=== PATIENT | male | born 1960 | race Caucasian/White ===

== ENCOUNTER 2016-11-02 15:14 | Inpatient (IN) | payer OTHER ==
[~2016-11-02] VITALS: Ht 180.3 cm; Wt 103.9 kg
[2016-11-02] VITALS (17 sets, daily range): BP systolic 86–966; BP diastolic 56–112
--- NOTE | ~2016-11-02 | H ---
[facility] [address] [place] [address] HISTORY AND PHYSICAL Name: PHYLLIS COHN Room #: 208-P [facility] IN M.R.#: [id number] Admission: 11/02/16 Attend Phys: Armaan Naqvi MD, Discharge: 11/04/16 Date of : 64 Report #: [id number] THIS REPORT FOR: //name// CC: Armaan Naqvi [facility] physician/PCP REASON FOR ADMISSION: Myocardial infarction. HISTORY OF PRESENT ILLNESS: The patient is a 56-year-old gentleman, who is a patient of Dr. Lennie Cristobal with hypertension and dyslipidemia. Since Saturday, he has had off again on again midsternal chest discomfort, emanating from his epigastrium up into his upper chest. He thought that this was probably reflux and took some anti-reflux medicine without improvement. Today, around noon, the pain recurred and persisted and was associated with diaphoresis. With the unremitting nature of the discomfort, he presented to the emergency department, wherein EKG demonstrated sinus rhythm with inferior injury pattern. STEMI was activated. He denies heart failure symptoms including orthopnea, paroxysmal nocturnal dyspnea, or lower extremity edema. No history of palpitations, near syncope, or syncope. ALLERGIES: He has possible allergy to ASPIRIN. MEDICATIONS: Include simvastatin, lisinopril, Asmanex, and Flonase. PAST MEDICAL HISTORY: Medical records have been reviewed and include history of premalignant colon polyp removed several years ago, history of hypertension, dyslipidemia, and prior back surgery. 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 FAMILY HISTORY: Notable for father had heart attack in his 60s. REVIEW OF SYSTEMS: All systems negative except as that noted above. PHYSICAL EXAMINATION: GENERAL: This is a pleasant gentleman in no distress. VITAL SIGNS: Blood pressure is 150/90, heart rate of 100 and regular. He is afebrile, 5 feet 11 inches tall, 227 pounds. HEENT: There are neither xanthelasma, subcutaneous xanthomata, oral mucosal or digital cyanosis or kyphoscoliosis present. CHEST: Clear to auscultation and percussion. CARDIAC: Regular rate and rhythm with normal S1 and S2. Heart sounds are distant. ABDOMEN: Soft and nontender. EXTREMITIES: Without cyanosis, clubbing, or edema. Radial pulses are 2+. NEUROLOGIC: He is alert with a nonfocal exam. [facility] [address] [place] [address] HISTORY AND PHYSICAL Name: PHYLLIS COHN Room #: 208-P [facility] IN [facility]#: [id number] Admission: 11/02/16 Attend Phys: Armaan Naqvi MD, Discharge: 11/04/16 Date of : 64 Report #: [id number] LABORATORY DATA: Sodium 138, potassium 4.0, creatinine 1.1, glucose of 120. White count 12.7, hemoglobin 15, hematocrit 46, platelet count 275. Chest x-ray pending. EKG as detailed above. IMPRESSION: 1. Acute inferior myocardial infarction. 2. Hypertension. 3. Dyslipidemia. 4. Possible ASPIRIN allergy. 5. Elevated blood sugar; possible glucose intolerance versus diabetes. 6. Remote smoking history. RECOMMENDATIONS: 1. Therapy with systemic anticoagulants and antiplatelets. 2. Urgent coronary angiography. The angiographic procedure was discussed in detail including its associated risks. After a thorough discussion of the procedure, its risks and alternatives, and after answering his questions in detail, he is agreeable to proceeding. <ELECTRONICALLY SIGNED> By: Armaan Naqvi MD, FACC 11/04/16 1323 1556 1836 Armaan Naqvi MD, FAC /nt
--- NOTE | ~2016-11-02 | EKG ---
[address] [address] ELECTROCARDIOGRAM REPORT Name: MACK COHNIC Deborah Room #: 208-P [facility] IN M.R.#: [id number] Admission: 11/02/16 Attend Phys: Armaan Naqvi MD, Discharge: Date of : 64 Report #: [id number] THIS REPORT FOR: //name// [facility] ED Test Date: 2016-11-02 Test Time: 15:18:57 Pat Name: PHYLLIS COHN Department: Room: 208 Gender: M Pcu Rn: FAUSTINA : 1960 Requested By: Renny Mead Order Number: [id number] MD: Armaan Naqvi Measurements Intervals [place] Rate: 91 P: 45 AL: 170 QRS: 37 QRSD: 89 T: 39 QT: 334 QTc: 411 Interpretive Statements Sinus rhythm Inferior infarct,acute No previous ECG available for comparison Electronically Signed On 11-03-2016 13:39:41 FOUNDATION DIGGER by Armaan Naqvi [email or web address] <ELECTRONICALLY SIGNED> By: Armaan Naqvi MD, [facility] 11/03/16 1339 1518 151 Armaan Naqvi MD, FACC /EPI
--- NOTE | ~2016-11-02 | EKG ---
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 : 1960 Requested By: Armaan Naqvi Order Number: [id number] MD: Armaan Naqvi Measurements Intervals [place] Rate: 68 P: 17 [place]: 174 QRS: -10 QRSD: 96 T: -2 QT: 403 QTc: 429 Interpretive Statements Sinus rhythm Abnormal R-wave progression, early transition Inferior infarct, recent No previous ECG available for comparison Electronically Signed On 11-03-2016 13:52:00 UM SPECIALIST by Armaan Naqvi [email or web address] <ELECTRONICALLY SIGNED> By: Armaan Naqvi MD, [facility] 11/03/16 1352 0659 0659 Armaan Naqvi MD, [facility] /EPI
--- NOTE | ~2016-11-02 | D ---
[facility] [place] [address] [place] [address] DISCHARGE SUMMARY Name: PHYLLIS COHN Room #: 208-P [facility] IN M.R.#: [id number] Admission: 11/02/16 Attend Phys: Armaan Naqvi MD, Discharge: 11/04/16 Date of : 64 Report #: [id number] THIS REPORT FOR: //name// CC: Armaan Naqvi [facility] physician/PCP PHYSICIAN: Lennie Cristobal M.D. DISCHARGE DIAGNOSES: 1. Inferior myocardial infarction, interrupted by stenting of the right coronary artery (3.0 x 18-mm Resolute stent). 2. Lskg-cq-ykrquxoc ischemic cardiomyopathy. 3. Dyslipidemia. 4. Hypertension. 5. Significant proximal left anterior descending disease to be approached in a staged fashion. 6. Asthma. 7. Glucose intolerance. 8. Remote smoking history. HISTORY OF PRESENT ILLNESS: For the complete details of the history of present illness, see dictated history and physical. Briefly, the patient is a 56-year-old gentleman who presented with a week of stuttering midsternal chest tightness. Originally, I thought this was reflux, although on the day of admission, this pain recurred and persisted. He presented to the emergency department where inferior injury pattern was identified. He was taken urgently to coronary angiography. HOSPITAL COURSE: The patient was taken urgently to coronary angiography. The full details of this can be found under separate heading and dictation. In summary, the right coronary was found to be occluded and successfully stented with a 3.0 x 18-mm Resolute medicated stent. The circumflex exhibited mild plaquing. The proximal LAD exhibited a discrete 85% stenosis, to be approached within the next several weeks in a staged fashion. He was treated with heparin, Integrilin, aspirin, Effient and beta blockade in the [place]-procedural setting. He remained hemodynamically and electrically stable following the procedure. His peak troponin was 37. Lipid profile 146, triglycerides 72, LDL 88. Blood sugar was elevated on admission. Hemoglobin A1c was mildly elevated at 5.7. At this point dietary management was recommended. DISCHARGE MEDICATIONS: Include lisinopril 5 mg daily, metoprolol succinate 25 mg daily, aspirin, Effient 10 mg daily, simvastatin 40 mg daily, Asmanex and Flonase. On presentation, he told us of having an aspirin allergy, although this was in question and he reports what his mother told him when he was a young child. He [address] [address] DISCHARGE SUMMARY Name: PHYLLIS COHN Room #: 208-P [facility] IN .R.#: [id number] Admission: 11/02/16 Attend Phys: Armaan Naqvi MD, Discharge: 11/04/16 Date of : 64 Report #: [id number] had no adverse consequences of aspirin administration and no allergic reaction or adverse consequence to administration of aspirin during this hospital stay. Follow up with myself in 2-4 weeks. Medicines were reconciled. DISCHARGE DIET: Carb-controlled, low-fat, low-cholesterol and heart healthy. Arrangements were made for cardiac rehabilitation after his upcoming staged LAD stenting procedure. DISCHARGE ACTIVITY: As instructed post-catheterization. DISCHARGE CONDITION: Stable and improved. <ELECTRONICALLY SIGNED> By: Armaan Naqvi MD, FACC 11/04/16 1325 0856 1211 Armaan Naqvi MD, FACC /nt
--- NOTE | ~2016-11-02 | EKG ---
[address] [address] ELECTROCARDIOGRAM REPORT Name: PHYLLIS COHN Room #: 208-P [facility] IN M.R.#: [id number] Admission: 11/02/16 Attend Phys: Armaan Naqvi MD, Discharge: Date of : 64 Report #: [id number] THIS REPORT FOR: //name// [facility] Test Date: 2016-11-02 Test Time: 18:16:32 Pat Name: PHYLLIS COHN Department: Room: 208 Gender: M Analytical Research Program Manager: Yocasta FLOREZ : 1960 Requested By: Armaan Naqvi Order Number: [id number] MD: Armaan Naqvi Measurements Intervals [place] Rate: 69 P: 16 [place]: 161 QRS: 20 QRSD: 72 T: 32 QT: 358 QTc: 384 Interpretive Statements Sinus rhythm Inferior infarct, recent No previous ECG available for comparison Electronically Signed On 11-03-2016 13:43:41 DIRECTOR NEW PRODUCT by Armaan Naqvi [email or web address] <ELECTRONICALLY SIGNED> By: Armaan Naqvi MD, [facility] 11/03/16 1343 1816 15 Armaan Naqvi MD, FACC /EPI
--- NOTE | ~2016-11-02 | CATHLAB ---
[facility] [address] [place] [address] INVASIVE PROCEDURE REPORT Name: PHYLLIS COHN Room #: 208-P [facility] IN .#: [id number] Admission: 11/02/16 Attend Phys: Armaan Naqvi, Discharge: 11/04/16 Date of : 64 Date of Service: 11/02/16 1827 Report #: [id number] THIS REPORT FOR: //name// CC: Armaan Naqvi [facility] physician/PCP Lennie Cristobal MD PROCEDURE: Left heart coronary angiography, angioplasty and stenting of the right coronary. INDICATIONS: Acute inferior myocardial infarction. DESCRIPTION OF PROCEDURE: The potential benefits and risks of the procedure were discussed at length with the patient who understood. Full written and informed consent was obtained. The patient was brought into the catheterization suite where his right groin was prepped and draped in a sterile fashion. He was sedated with intravenous Versed. 1% Xylocaine was used as local anesthetic. A 6-Occitan sheath was placed in the right femoral artery by the modified Seldinger technique. Left heart catheterization was performed with a 6-Occitan angled pigtail catheter. A single plain ventriculogram was performed in the PHILLIPS view. Pullback gradients were measured across the aortic valve. Selective coronary angiography was performed with a 6-Occitan left and right 4 cm Naomy coronary catheter. All diagnostic catheters removed. Attention was turned to a complete occlusion of the proximal right coronary. The patient was premedicated with Effient, aspirin, heparin and Integrilin. A JR4 launcher guide catheter was placed over a wire with its tip at the ostium of the right coronary. A 0.014 inch Luge wire was used to traverse the proximal right coronary stenosis, which was predilated with a 2.5 x 12 mm Euphora balloon. BUSHRA 3 flow was re-established. There was a fairly long proximal right coronary stenosis, which was stented with a 3.0 x 18 mm Resolute medicated stent dilated to close to 3.2 mm with a 3.0 NC Trek noncompliant balloon, And 0% residual stenosis remained with BUSHRA 3 flow restored in the vessel. RESULTS: LEFT HEART HEMODYNAMICS: 1. Left ventricular systolic pressure of 130. 2. Left ventricular end-diastolic pressure of 18. 3. Aortic valve, no gradient was present on pullback across the aortic valve. Central aortic pressure of 130/70. ANGIOGRAPHY: LEFT VENTRICULOGRAM: Ventriculography demonstrated mild left ventricular dysfunction with hypokinesis involving the base to mid portions of the inferior wall. The ejection fraction was estimated at 45%. SELECTIVE CORONARY ANGIOGRAPHY: 1. The right coronary was occluded proximally. [facility] [address] [place] [address] INVASIVE PROCEDURE REPORT Name: PHYLLIS COHN Room #: 208-P [facility] IN M.R.#: [id number] Admission: 11/02/16 Attend Phys: Armaan Naqvi, Discharge: 11/04/16 Date of : 64 Date of Service: 11/02/16 1827 Report #: [id number] 2. Left main was angiographically normal. 3. The left anterior descending was a large vessel that extended to the apex. Proximal LAD exhibited a discrete 85% stenosis. Remaining portion of the LAD appeared to be angiographically normal. There was a moderate sized ramus branch that exhibited a moderate 40% to 50% proximal stenosis. 4. The circumflex was large, but nondominant and comprised of a single marginal branch, which exhibited mild proximal plaquing. 5. Post-angioplasty and stenting, the proximal right coronary was ballooned and then stented with a 3.0 x 18 mm Resolute stent postdilated to close to 3.2 mm. The remaining portion of the right coronary was dominant and exhibited mild scattered plaquing including a large posterior descending branch. Posterolateral branch was thready and small in caliber. SUMMARY: 1. Mild left ventricular dysfunction with hypokinesis involving the base and mid portions of the inferior wall, ejection fraction 45%. 2. Normal left main. 3. Proximal LAD stenosis of 85%. This will be approached in a staged fashion within the next several weeks. 4. The circumflex exhibited mild plaquing. 5. The right coronary was occluded proximally and successfully stented with a 3.0 x 18 mm Resolute stent postdilated to 3.2 mm with a noncompliant balloon. <ELECTRONICALLY SIGNED> By: Armaan Naqvi MD, [facility] 11/06/16 0946 1827 1055 Armaan Naqvi MD, FAC /nt
[2016-11-02 15:45] LABS: ABSOLUTE NEUTROPHILS 9.9 thou/uL (1.4-8.2); EOSINOPHILS 1.2 % (0.0-3.0); HEMATOCRIT 46.6 % (42.0-52.0); HEMOGLOBIN 15.8 gm/dL (14.0-18.0); LYMPHOCYTES 11.9 % (24.0-44.0); MCH 30.5 pg (26.0-34.0); MCV 89.9 fL (80.0-100.0); MONOCYTES 8.3 % (1.0-8.0); PLATELET COUNT 275 thou/uL (150-400); POLYS 77.6 % (36.0-66.0); RBC 5.19 mil/uL (4.50-6.00); RDW 13.3 % (10.5-14.5); WBC 12.7 thou/uL (4.0-11.0)
[2016-11-02 15:51] LABS: POC CA IONIZED 4.4 mg/dL (4.5-5.3); POC CREATININE 1.1 mg/dL (0.6-1.3); POC HEMOGLOBIN 16.7 gm/dL (14.0-18.0)
[2016-11-02 15:53] LABS: ANION GAP 8 mmol/L (7-16); BUN 15 mg/dL (7-18); CALCIUM 8.7 mg/dL (8.5-10.1); CHLORIDE 100 mmol/L (98-107); CO2 27 mmol/L (21-32); CREATININE 1.4 mg/dL (0.6-1.3); GLUCOSE 120 mg/dL (70-99); SODIUM 135 mmol/L (136-145)
[2016-11-02 15:54] LABS: MANUAL DIFF NO
[2016-11-02 16:05] LABS: ALBUMIN 4.1 g/dL (3.4-5.0); ALKALINE PHOSPHATASE 74 U/L (46-116); DIRECT BILIRUBIN < 0.1 mg/dL (<0.1-0.3); MAGNESIUM 2.1 mg/dL (1.8-2.4); NT-PRO BRAIN NAT PEPTIDE 844 pg/mL (<300); SGOT 110 U/L (15-37); SGPT 62 U/L (30-65); TOTAL BILIRUBIN 0.5 mg/dL (<0.1-1.0); TOTAL PROTEIN 7.8 g/dL (6.4-8.2)
[2016-11-02 16:10] LABS: TROPONIN-I 8.44 ng/mL (<0.04-0.07)
[2016-11-02] MEDS ORDERED: LISINOPRIL10 MG PO (18:13)
[2016-11-02] MEDS ORDERED: ASMANEX220 MC1 INH (18:15)
[2016-11-02] MEDS ORDERED: SIMVASTATIN20 MG PO (18:16)
[2016-11-02] MEDS ORDERED: SINGULAIR 10 MG10 M1 PO (18:17)
[2016-11-02] MEDS ORDERED: FLONASE 0.05%50 MCG NASAL (18:19)
[2016-11-02] MEDS ORDERED: IBUPROFEN 800800 M1 PO (18:20)
[2016-11-03] VITALS (9 sets, daily range): BP systolic 83–112; BP diastolic 54–77
[2016-11-03 02:06] LABS: GLYCOHEMOGLOBIN (HGB A1C) 5.7 % (4.8-5.6)
[2016-11-03 04:25] LABS: CHOLESTEROL 146 mg/dL (<200); HDL CHOLESTEROL 44 mg/dL (>40); LDL CHOLESTEROL 88 mg/dL (<100); TC:HDL 3.3 Ratio (Not establshd); TRIGLYCERIDE 72 mg/dL (<150); VLDL 14 mg/dL (<40)
[2016-11-03 04:29] LABS: SERUM ASSESSMENT Clear
[2016-11-03 09:22] LABS: HEMATOCRIT 40.4 % (42.0-52.0); MCH 30.6 pg (26.0-34.0); MCHC 33.3 % (28.0-37.0); RBC 4.4 mil/uL (4.50-6.00); RDW 13.6 % (10.5-14.5); WBC 11.3 thou/uL (4.0-11.0)
[2016-11-03 09:41] LABS: HEMOGLOBIN 13.5 gm/dL (14.0-18.0)
[2016-11-03 09:56] LABS: CALCIUM 8.4 mg/dL (8.5-10.1); CREATININE 1.1 mg/dL (0.6-1.3); POTASSIUM 3.8 mmol/L (3.5-5.1)
[2016-11-03 10:00] LABS: TROPONIN-I 37.14 ng/mL (<0.04-0.07)
[2016-11-04 04:29] VITALS: BP 104/64
[2016-11-04 07:05] VITALS: BP 105/68
[2016-11-04 07:15] VITALS: BP 105/68
[2016-11-04] MEDS ORDERED: TOPROL XL25 MG PO (08:19)
[2016-11-04] MEDS ORDERED: NITROSTAT0.4 M1 SL (08:20)
[2016-11-04] MEDS ORDERED: ASPIRIN325 PO (08:21)
[2016-11-04] MEDS ORDERED: PLAVIX 75 MG TA75 M1 PO (08:22)
[2016-11-04 08:30] VITALS: BP 123/88
[2016-11-04] MEDS ORDERED: EFFIENT10 MG PO (08:33)
[2016-11-30] MEDS ORDERED: ASMANEX220 MC1 INH (07:10)
== END 2016-11-04 12:17 | disposition home or self-care (01) | DRG 247 ==
LOC: ER 15:14 → 2N 15:48 → ER 15:48 → EROBS 17:33 → 2N 17:33
PROVIDERS: Internal Medicine; Physician Assistant
PROC: 4A023N7 Measurement of Cardiac Sampling and Pressure, Left Heart, Percutaneous Approach (ICD-10-PCS; principal; 2016-11-02)
PROC: B2111ZZ Fluoroscopy of Multiple Coronary Arteries using Low Osmolar Contrast (ICD-10-PCS; principal; 2016-11-02)
PROC: 027034Z Dilation of Coronary Artery, One Artery with Drug-eluting Intraluminal Device, Percutaneous Approach (ICD-10-PCS; principal; 2016-11-02)
PROC: B2151ZZ Fluoroscopy of Left Heart using Low Osmolar Contrast (ICD-10-PCS; principal; 2016-11-02)
DX: I21.3 ST elevation (STEMI) myocardial infarction of unspecified site (principal); I25.5 Ischemic cardiomyopathy; I10 Essential (primary) hypertension; E78.5 Hyperlipidemia, unspecified; E66.9 Obesity, unspecified; E74.39 Other disorders of intestinal carbohydrate absorption; J45.909 Unspecified asthma, uncomplicated; Z88.6 Allergy status to analgesic agent; Z79.899 Other long term (current) drug therapy; Z98.890 Other specified postprocedural states; Z82.49 Family history of ischemic heart disease and other diseases of the circulatory system; Z87.891 Personal history of nicotine dependence; Z68.31 Body mass index [BMI] 31.0-31.9, adult
CPT/HCPCS: 10194

== ENCOUNTER 2019-05-19 17:20 | Emergency (ER) | payer BC ==
[~2019-05-19] VITALS: Ht 180.3 cm; Wt 108.0 kg
[~2019-05-19 17:20] MED LIST: ASMANEX220 MC1 INH; ASPIRIN325 PO; EFFIENT10 MG PO; FLONASE 0.05%50 MCG NASAL; IBUPROFEN 800800 M1 PO; LISINOPRIL10 MG PO; NITROSTAT0.4 M1 SL; PLAVIX 75 MG TA75 M1 PO; SIMVASTATIN20 MG PO; SINGULAIR 10 MG10 M1 PO; TOPROL XL25 MG PO
[2019-05-19] MEDS ORDERED: SYMBICORT160 MCG/4. INH (17:38)
[2019-05-19] MEDS ORDERED: CRESTOR40 MG PO (17:39)
[2019-05-19 17:42] LABS: ABSOLUTE NEUTROPHILS 3.1 thou/uL (1.4-8.2); BASOPHILS 0.8 % (0.0-2.0); EOSINOPHILS 14.5 % (0.0-3.0); HEMATOCRIT 44.3 % (42.0-52.0); HEMOGLOBIN 14.9 gm/dL (14.0-18.0); LYMPHOCYTES 36.9 % (24.0-44.0); MCH 30.5 pg (26.0-34.0); MCHC 33.7 g/dL (28.0-37.0); MCV 90.6 fL (80.0-100.0); MONOCYTES 10.4 % (1.0-8.0); PLATELET COUNT 251 thou/uL (150-400); POLYS 37.4 % (36.0-66.0); RBC 4.89 mil/uL (4.50-6.00); RDW 14.4 % (10.5-14.5); WBC 8.2 thou/uL (4.0-11.0)
[2019-05-19 17:54] LABS: ANION GAP 9 mmol/L (7-16); BUN 19 mg/dL (7-18); CALCIUM 9.4 mg/dL (8.5-10.1); CHLORIDE 103 mmol/L (98-107); CO2 28 mmol/L (21-32); GLUCOSE 91 mg/dL (74-106); POTASSIUM 3.9 mmol/L (3.5-5.1); SODIUM 140 mmol/L (136-145)
[2019-05-19 18:03] LABS: ALBUMIN 4.2 g/dL (3.4-5.0); SGOT 34 U/L (15-37); SGPT 48 U/L (30-65); TOTAL BILIRUBIN 0.4 mg/dL (<0.1-1.0); TOTAL PROTEIN 7.8 g/dL (6.4-8.2); TROPONIN-I <0.06 ng/mL (<0.06)
[2019-05-19] MEDS ORDERED: XOPENEX HFA15 GM INH (19:14)
[2019-05-19 19:27] VITALS: BP 136/87
--- NOTE | 2019-05-20 07:48 | EKG ---
[address] [address] ELECTROCARDIOGRAM REPORT Name: PHYLLIS COHN Room #: 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: JOSEFINA : 1960 Requested By: Daxa Jimenez Order Number: [id number] MD: Clarence Mejia Measurements Intervals [place] Rate: 61 P: 8 SC: 192 QRS: 27 QRSD: 99 T: 4 QT: 432 QTc: 435 Interpretive Statements Sinus rhythm Abnormal R-wave progression, early transition Baseline wander in lead(s) V2 Compared to ECG 12/01/2016 06:47:55 Myocardial infarct finding no longer present Electronically Signed On 05-20-2019 7:48:19 CDT by Clarence Mejia [email or web address] <ELECTRONICALLY SIGNED> By: Clarence Mejia MD 05/20/19 0748 1724 1724 Clarence Mejia MD /EPI
== END 2019-05-19 19:28 | disposition home or self-care (01) ==
LOC: ER 17:20
PROVIDERS: Physician Assistant
DX: J30.9 Allergic rhinitis, unspecified (principal); R06.00 Dyspnea, unspecified; J45.909 Unspecified asthma, uncomplicated; I10 Essential (primary) hypertension; E78.00 Pure hypercholesterolemia, unspecified

== ENCOUNTER → 2021-07-14 | Outpatient (CLI) | payer BC, OTHER ==
[~2021-07-14] MED LIST changes: +CRESTOR40 MG PO; +SYMBICORT160 MCG/4. INH; +XOPENEX HFA15 GM INH
== END ==
LOC: SJCVCIMAG 09:44
PROVIDERS: ATTEND Internal Medicine
DX: I25.10 Atherosclerotic heart disease of native coronary artery without angina pectoris (principal); I10 Essential (primary) hypertension; Z95.1 Presence of aortocoronary bypass graft